=== PATIENT | male | born 1980 | race Two or more races ===

== ENCOUNTER 2017-07-28 21:32 | Emergency (ER) | payer SELFPAY ==
[~2017-07-28] VITALS: Ht 172.7 cm; Wt 65.8 kg
--- NOTE | 2017-07-28 21:36 | NUR ---
PT BIBRA FROM THE STREETS TO ER BED 15. PER REPORT, ETOH. 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 NO OBVIOUS TRAUMA. PLACED ON MONITOR. STABLE VITALS. AWAITING MD GRADY.
--- NOTE | 2017-07-28 22:25 | NUR ---
PT TO RADIOLOGY FOR HEAD CT SCAN VIA [facility].
--- NOTE | 2017-07-28 23:15 | NUR ---
REPORT GIVEN TO CHARGE NURSE SHARON FOR JANAK.
--- NOTE | 2017-07-29 00:09 | NUR ---
PT SLEEPING IN BED IN NO APPARENT DISTRESS, MD MADE AWARE WILL CONTINUE TO MONITOR.
--- NOTE | 2017-07-29 03:28 | NUR ---
PT AWAKE A/OX4 BREATHING EFFORTLESSLY ON ROOM AIR, PT STATES HE WANTS TO GO, MD DEL VALLE MADE AWARE, ACI GIVEN TO PT AND PT WALKED OUT OF THE ER WITH A STEADY GAIT
[2017-07-29 03:37] VITALS: BP 122/68
== END 2017-07-29 03:38 | disposition home or self-care (01) ==
LOC: ER 21:35
DX: F10.129 Alcohol abuse with intoxication, unspecified (principal); R41.82 Altered mental status, unspecified
CPT/HCPCS: 70450; 99284; A4606; Z7610